=== PATIENT | male | born 1960 | race Caucasian/White ===

== ENCOUNTER → 2016-09-25 | Outpatient (CLI) | payer BC ==
[~2016-09-25] MED LIST: ACHD5005 PO; HYDR1TAB8 OP; KEFLEX 250 MG; MPR22T TOP; PERCOCET; PRD10T PO; SULF1TAB38 PO
--- NOTE | 2016-09-25 16:49 | Diagnostic Imaging Report ---
INDICATION: Dyspnea, history of tobaccoism. DISCUSSION: Two views of the chest were obtained, comparison 10/24/2006. The lungs are hyperinflated, consistent with underlying COPD. Small hiatal hernia. Normal heart size. No focal consolidation, pleural fluid, or pneumothorax. Age-related degenerative changes are present throughout the thoracic spine. IMPRESSION: 1. COPD. 2. Small hiatal hernia. Dictated by: Dictated on workstation # [id number]
== END ==
LOC: RAD 16:14
PROVIDERS: ATTEND Family Medicine
DX: J44.9 Chronic obstructive pulmonary disease, unspecified (principal); K44.9 Diaphragmatic hernia without obstruction or gangrene
CPT/HCPCS: 71020

== ENCOUNTER → 2019-12-30 | Outpatient (CLI) | payer BC ==
--- NOTE | 2019-12-30 18:02 | Diagnostic Imaging Report ---
EXAMINATION: Magnetic resonance imaging of the left knee without intravenous contrast DATE: December 30, 2019. COMPARISON: None. INDICATION: 59-year-old male, left knee pain. TECHNIQUE: Multiplanar, multisequence non contrast enhanced MR imaging was accomplished. FINDINGS: MENISCI: There is signal in the body and posterior horn of the medial meniscus which does not meet strict MRI diagnostic criteria for definite diagnosis of tear. There is no parameniscal cyst. There is no medial meniscal extrusion. The lateral meniscus is intact. LIGAMENTS AND TENDONS: The anterior and posterior cruciate ligaments are intact. The medial collateral ligament is intact. The iliotibial band, mid third lateral capsular ligament, fibular collateral ligament, biceps femoris tendon and conjoined tendon are intact. The quadriceps tendon and patella ligament are intact. JOINT: The articular cartilage surfaces are intact. There is a trace to small knee joint effusion without identified intra-articular body or prominent synovitis. BONE: There is unremarkable bone marrow signal. Specifically, negative for fracture, osteomyelitis, osteonecrosis, or marrow replacing process. BURSAE AND SOFT TISSUES: There is a small Bakers cyst which is partially ruptured. There is very low level edema in the popliteus muscle which may relate to a low-grade muscle strain. There are collateral vessels within the subcutaneous tissues. IMPRESSION: 1. Intact menisci and cruciate ligaments. Additional ligaments and tendons are intact. 2. No acute fracture or bone contusion. 3. Intact articular cartilage. Trace to small knee joint effusion without identified intra-articular body or prominent synovitis. 4. Small Solano's cyst which is partially ruptured. 5. Very low level edema in the popliteus muscle which potentially may reflect low-grade muscle strain. Dictated by: Dictated on workstation # [id number]
== END ==
LOC: RAD 15:17
PROVIDERS: ATTEND Family Medicine
DX: M25.462 Effusion, left knee (principal); M71.22 Synovial cyst of popliteal space [Baker], left knee
CPT/HCPCS: 73721